=== PATIENT | female | born 1950 | race Caucasian/White ===

== ENCOUNTER 2018-06-11 14:21 | Inpatient (IN) | payer OTHER ==
[~2018-06-11] VITALS: Ht 162.6 cm; Wt 81.6 kg
[~2018-06-11 14:21] MED LIST: CATAFLAN PO; NIQUIL; PROVENTIL2.5 MG/3 M IH; STIOLTO RESPIMAT4 GM IH; ZOCOR5 MG PO
[2018-07-10] MEDS ORDERED: AVAPRO PO (10:48)
[2018-07-16] MEDS ORDERED: AVAPRO150 MG PO (10:46)
== END 2018-07-19 07:12 | DRG 470 ==
LOC: O/R 07-15 06:39 → SURG 07-15 06:39 → SURH 07-15 07:00 → SURG 07-15 14:54
PROVIDERS: ADMIT Orthopaedic Surgery
PROC: 0SRB0JZ Replacement of Left Hip Joint with Synthetic Substitute, Open Approach (ICD-10-PCS; principal; 2018-07-15 07:00)
PROC: 30233N1 Transfusion of Nonautologous Red Blood Cells into Peripheral Vein, Percutaneous Approach (ICD-10-PCS; 2018-07-16)
DX: M16.12 Unilateral primary osteoarthritis, left hip (principal); D62 Acute posthemorrhagic anemia; I10 Essential (primary) hypertension